=== PATIENT | female | born 1975 | race Hispanic/Latino ===

== ENCOUNTER 2022-11-12 00:08 | Emergency (ER) | payer MEDICAID ==
[~2022-11-12] VITALS: Ht 152.4 cm; Wt 74.8 kg
[2022-11-12 01:36] VITALS: BP 136/88
== END 2022-11-12 01:38 | disposition left against medical advice (07) ==
LOC: EDH 00:08
DX: M25.562 Pain in left knee (principal); Z53.21 Procedure and treatment not carried out due to patient leaving prior to being seen by health care provider
CPT/HCPCS: 73562